=== PATIENT | female | born 1980 | race African-American/Black ===

== ENCOUNTER 2020-12-17 13:29 | Emergency (ER) | payer OTHER ==
[~2020-12-17] VITALS: Ht 160 cm; Wt 113.6 kg
[~2020-12-17 13:29] MED LIST: AMLO-258 PO; DIPH25CA85 PO; FAMO20 PO; PRED-409 PO; PRED10 PO; PRED20 PO
[2020-12-17] MEDS ORDERED: KETOROLAC TROMETHAMINE 30 MG/ML VIAL IM ONE (14:45)
[2020-12-17] MEDS: GABAPENTIN 100 MG CAPSULE PO ONE ×2 (14:57→15:19)
[2020-12-17 15:46] VITALS: BP 131/75
== END 2020-12-17 16:24 | disposition home or self-care (01) ==
LOC: EMS 13:32
DX: M54.5 Low back pain (principal); G89.29 Other chronic pain; I10 Essential (primary) hypertension; F17.210 Nicotine dependence, cigarettes, uncomplicated; Z90.710 Acquired absence of both cervix and uterus; Z88.8 Allergy status to other drugs, medicaments and biological substances
CPT/HCPCS: 96372; 99283; J1885

== ENCOUNTER 2020-12-25 18:47 | Emergency (ER) | payer OTHER ==
[~2020-12-25] VITALS: Ht 157.5 cm; Wt 90.9 kg
[2020-12-25] MEDS ORDERED: LIDOCAINE 5% TRANSDERMAL PATCH TD ONE (20:30)
[2020-12-25] MEDS ORDERED: KETOROLAC TROMETHAMINE 10 MG TABLET PO ONE (21:00)
[2020-12-25] MEDS ORDERED: CYCLOBENZAPRINE HCL 10 MG TABLET PO ONE (21:00)
[2020-12-25 21:35] VITALS: BP 113/73
== END 2020-12-25 21:57 | disposition home or self-care (01) ==
LOC: EMS 18:48
DX: M54.5 Low back pain (principal); G89.29 Other chronic pain; M54.6 Pain in thoracic spine; I10 Essential (primary) hypertension; F17.210 Nicotine dependence, cigarettes, uncomplicated; Z88.5 Allergy status to narcotic agent
CPT/HCPCS: 99284; Z7502; Z7610

== ENCOUNTER 2020-12-29 11:09 | Emergency (ER) | payer OTHER ==
[~2020-12-29] VITALS: Ht 157.5 cm; Wt 120.5 kg
[2020-12-29 14:18] VITALS: BP 136/95
== END 2020-12-29 15:09 | disposition home or self-care (01) ==
LOC: EMS 11:47
DX: S86.811A Strain of other muscle(s) and tendon(s) at lower leg level, right leg, initial encounter (principal); F17.210 Nicotine dependence, cigarettes, uncomplicated; Z88.8 Allergy status to other drugs, medicaments and biological substances; Z79.899 Other long term (current) drug therapy; X58.XXXA Exposure to other specified factors, initial encounter; Y93.89 Activity, other specified; Y92.89 Other specified places as the place of occurrence of the external cause; Y99.8 Other external cause status
CPT/HCPCS: 93971; 99284; Z7502